=== PATIENT | male | born 1985 | race Caucasian/White ===

== ENCOUNTER 2024-08-16 06:20 | Day surgery (SDC) | payer OTHER, SELFPAY ==
[2024-07-11 06:02] VITALS: BMI 35.9
[2024-07-30 13:21] VITALS: BMI 33.4
--- NOTE | 2024-08-16 06:52 | WPDANESEPPF ---
Anes - Initial Pre Proc Eval Procedure: Operation Date: 08/16/24 08:30 Proposed Procedures p Diagnostic Colonoscopy - Luis Fisher MD Date/Time: 08/16/24 06:52 Surgeon: Luis Fisher MD Pre Op Diagnosis: Hemorrhage of Anus and Rectum Patient Data Age: 39 Gender: M Height: 1.88 m Weight: 118 kg Allergies Allergy/AdvReac Type Severity Reaction Status Date / Time cephalexin Allergy Intermediate Leg Verified 07/30/24 13:21 swelling Home Medications Medication Instructions Recorded Confirmed Type levothyroxine 125 mcg tablet 250 mcg PO DAILY #180 tabs 01/19/24 07/30/24 Rx sodium,potassium,mag sulfates 17.5 See Rx Instructions PO .COMPLEX 07/10/24 07/30/24 Rx gram-3.13 gram-1.6 gram oral soln #354 mL (Suprep Bowel Prep Kit) sodium,potassium,mag sulfates 17.5 See Rx Instructions PO .COMPLEX 08/10/24 Rx gram-3.13 gram-1.6 gram oral soln #354 mL (Suprep Bowel Prep Kit) Patient hx anesthesia problems: none Family hx anesthesia problems: none Results Review: All pre-operative results and documents have been reviewed as part of the pre-operative evaluation. [facility] Past Medical History Medical History (Updated 07/04/24 @ 17:53 by Gerson Patterson MD) Elevated fasting glucose Fasting glucose 116 with hemoglobin A1c 5.6 on work labs April,. Family history of malignant neoplasm of prostate Hypersomnia Hypothyroidism TSH 0.9 with free T4 1.7 on 11/13/2022. Mixed hyperlipidemia Total cholesterol 173, triglycerides 177, HDL 33, LDL 111 April,. Obesity Rectal bleeding (~2022) Situational mixed anxiety and depressive disorder (~07/2023) depression and anxiety since of mother in July,. Family History Family History (Updated 07/04/24 @ 14:05 by Angelika Owusu MA) Mother Asthma FH: ovarian cancer Father Hypertension Hypothyroidism Sibling Hypothyroidism Social History Social History Social History: Smoking status: Never smoker Second hand tobacco smoke exposure: No Alcohol intake: never Substance use: never Substance use type: does not use Living arrangements: with family Occupation/Education: occupation Gender identity (if verbalized by the patient): Male Sexual Orientation (if Verbalized by the Patient): Straight or Heterosexual Spiritual care concerns: No Anes - Eval Final PreProcedure Day of Procedure 08/16/24 06:52 Patient weight: obese Heart: regular rate and rhythm Lungs: clear to auscultation Airway: Mallampati scale class II Neurological: alert and oriented Last oral intake: >/= 8 hours ASA classification: II Emergent: no Anesthetic plan: proceed Anesthesia type and monitoring: general GIVS and standard monitoring Results Review: All pre-operative results and documents have been reviewed as part of the pre-operative evaluation. Informed Consent: The patient's anesthetic plan and its attendant risks and benefits were discussed with the patient/family/POA. Questions were solicited and answers provided to the satisfaction of the patient/family/POA.
[2024-08-16] MEDS: LACTATED RINGERS 1,000 ML 150 ML IV CONT (07:40)
[2024-08-16 07:41] VITALS: BP 119/81; PULSE 82; RESP 18; TEMP 36.3; O2SAT 95
--- NOTE | 2024-08-16 08:25 | PM.HPGS ---
History of Present Illness History of Present Illness Consent: Risks, benefits, and alternatives have been discussed and questions answered. Patient agrees to proceed with procedure. Chief complaint: rectal bleeding Narrative: Neal Cruz is a 39 year old male referred for colonoscopy. Patient reports intermittent abdominal cramping occurring perhaps every month or 2. States his bowel habits are regular. Acute only with a firm stool. He has bright red blood per rectum with wiping that occurs intermittently. Patient referred now for further evaluation is noncontributory. Review of Systems Review of Systems: All systems reviewed & are unremarkable except as noted in HPI and below PMFSH Past Medical History Medical History (Updated 07/04/24 @ 17:53 by Gerson Patterson MD) Elevated fasting glucose Fasting glucose 116 with hemoglobin A1c 5.6 on work labs April,. Family history of malignant neoplasm of prostate Hypersomnia Hypothyroidism TSH 0.9 with free T4 1.7 on 11/13/2022. Mixed hyperlipidemia Total cholesterol 173, triglycerides 177, HDL 33, LDL 111 April,. Obesity Rectal bleeding (~2022) Situational mixed anxiety and depressive disorder (~07/2023) depression and anxiety since of mother in July,. Family History Family History (Updated 07/04/24 @ 14:05 by Angelika Owusu MA) Mother Asthma FH: ovarian cancer Father Hypertension Hypothyroidism Sibling Hypothyroidism Social History Social History Social History: Smoking status: Never smoker Second hand tobacco smoke exposure: No Alcohol intake: never Substance use: never Substance use type: does not use Living arrangements: with family Occupation/Education: occupation Gender identity (if verbalized by the patient): Male Sexual Orientation (if Verbalized by the Patient): Straight or Heterosexual Spiritual care concerns: No Meds Home Medications and Allergies Home Medications Medication Instructions Recorded Confirmed Type levothyroxine 125 mcg tablet 250 mcg PO DAILY #180 tabs 01/19/24 07/30/24 Rx sodium,potassium,mag sulfates 17.5 See Rx Instructions PO .COMPLEX 07/10/24 07/30/24 Rx gram-3.13 gram-1.6 gram oral soln #354 mL (Suprep Bowel Prep Kit) sodium,potassium,mag sulfates 17.5 See Rx Instructions PO .COMPLEX 08/10/24 Rx gram-3.13 gram-1.6 gram oral soln #354 mL (Suprep Bowel Prep Kit) Allergies Allergy/AdvReac Type Severity Reaction Status Date / Time cephalexin Allergy Intermediate Leg Verified 07/30/24 13:21 swelling Vital Signs Vital Signs - 24 hr 08/16/24 07:41 Temperature 97.4 F L Pulse Rate 82 Respiratory Rate 18 Blood Pressure 119/81 Pulse Oximetry 95 Oxygen Delivery Room Air Exam Narrative: Physical exam reveals be alert. Vital signs stable. HEENT is unremarkable. Patient is anicteric. Lungs are clear to auscultation and percussion sounds. Abdomen bowel sounds are present soft nontender. Digital and external rectal exam normal. Assessment and Plan Assessment and plan (1) Rectal bleeding: Onset Date: ~2022 Code(s): K62.5 - Hemorrhage of anus and rectum Status: Acute Assessment and Plan: Patient with occasional rectal bleeding. Most suspicious for hemorrhoidal bleeding. This appears in some association with intermittent abdominal cramping. Plan to evaluate with colonoscopy to exclude other more organic disease. Trial of fiber supplementation such as Metamucil encouraged at this time.
[2024-08-16 08:54] VITALS: BP 104/71; PULSE 96; RESP 18; O2SAT 96
[2024-08-16 09:04] VITALS: BP 105/70; PULSE 79; RESP 18; O2SAT 98
[2024-08-16 09:14] VITALS: BP 115/86; PULSE 67; RESP 18; O2SAT 97
--- NOTE | 2024-08-16 12:43 | WPDANESPN ---
Anes - Prog Note Post-Op Date/Time: 08/16/24 12:43 Cardiovascular status: normal Respiratory status: normal Airway patency: baseline Mental status: baseline Post-Op hydration status: normal Vital Signs: Last Vital Signs Temp 36.3 C L 08/16/24 07:41 Pulse 67 08/16/24 09:14 Resp 18 08/16/24 09:14 BP 115/86 08/16/24 09:14 Pulse Ox 97 08/16/24 09:14 O2 Del Method Room Air 08/16/24 09:14 Pain Score (VAS): 0 I/O: Intake & Output 08/15/24 08/16/24 08/16/24 23:59 07:59 15:59 Intake Total 650 Balance 650 Post-procedural complaints: none Patient Feedback: Patient satisfied with anesthetic care. Other Findings: Patient vital signs back to baseline. Patient denies nausea and vomiting. Patient's pain under control. Patient OK for discharge.
== END 2024-08-16 09:23 | disposition home or self-care (01) ==
PROVIDERS: Visit Provider Internal Medicine Gastroenterology
PROC: 0DJD8ZZ Inspection of Lower Intestinal Tract, Via Natural or Artificial Opening Endoscopic (ICD-10-PCS; CPT 45378; principal; 2024-08-16 08:30)
DX: K62.5 Hemorrhage of anus and rectum (principal); K64.8 Other hemorrhoids
CPT/HCPCS: 45378

== ENCOUNTER 2024-10-02 09:27 | Outpatient (CLI) | payer OTHER, SELFPAY | END 2024-10-03 15:54 | disposition home or self-care (01) | LOC: ANHCSM 09:30 | PROVIDERS: Visit Provider Family Medicine | DX: G47.10 Hypersomnia, unspecified (principal) | CPT/HCPCS: 95800 ==